=== PATIENT | male | born 1960 | race Caucasian/White ===

== ENCOUNTER 2024-07-08 13:56 | Observation (INO) | payer OTHER ==
[2024-07-08] MEDS: SODIUM CHLORIDE 0.9% 1,000 ML IV STA (14:32)
[2024-07-08 14:34] LABS: Basophils # (A) 0.06 10*3/uL (0.00-0.10); Basophils % (A) 0.7 %; HGB 16.5 g/dL (13.0-17.0); Lymphocytes # (A) 2.13 10*3/uL (0.90-5.00); Lymphocytes % (A) 24.5 %; MCHC 35.1 g/dL (32.0-37.0); MCV 88.3 fL (80.0-97.0); Mean Platelet Volume 10.1 fL (9.5-12.2); Monocytes # (A) 0.74 10*3/uL (0.20-1.00); Monocytes % (A) 8.5 %; Neutrophils # (A) 5.75 10*3/uL (1.80-7.70); Neutrophils % (A) 66.1 %; Platelet Count 260 10*3/uL (140-440); RBC 5.32 10*6/uL (4.40-5.60); RDW 12.3 % (11.5-14.5)
[2024-07-08] MEDS: MAGNESIUM SULFATE-D5W PMX 1 GM in DEXTROSE/WATER 1 100ML.BAG IVPB STA (14:34)
--- NOTE | 2024-07-08 14:39 | ED ---
General Adult HPI - General Chief complaint: Arrhythmia/Palpitations Stated complaint: Afib Time Seen by Provider: 07/08/24 14:12 Source: patient, RN notes reviewed, old records reviewed Mode of arrival: ambulatory Limitations: no limitations - History of Present Illness Initial comments: 64-year-old male history of CAD, remote history of atrial fibrillation presenting from preop for evaluation of atrial flutter with RVR. Patient was awaiting colonoscopy. He did do a bowel prep and has not eaten in the past 24 hours. Patient denies chest pain, denies palpitations. Denies shortness of breath. No abdominal pain. No fever. - Related Data Home Medications Medication Instructions Recorded Confirmed Aspirin [Adult Low Dose Aspirin EC] 81 mg PO WEEKLY 07/06/24 07/08/24 Atorvastatin Calcium [Lipitor] 40 mg PO HS 07/06/24 07/08/24 Metoprolol Succinate (ER) [Toprol 100 mg PO DAILY 07/06/24 07/08/24 Xl] Multivitamin [Multivitamins Adult 1 tab PO DAILY 07/06/24 07/08/24 Gummies] hydroCHLOROthiazide 25 mg PO DAILY 07/06/24 07/08/24 lisinopriL 2.5 mg PO DAILY 07/06/24 07/08/24 Allergies Allergy/AdvReac Type Severity Reaction Status Date / Time No Known Allergies Allergy Verified 07/08/24 14:03 Review of Systems ROS Statement: Those systems with pertinent positive or pertinent negative responses have been documented in the HPI. ROS Other: All systems not noted in ROS Statement are negative. Past Medical History Past Medical History: Coronary Artery Disease (CAD), Hyperlipidemia, Hypertension, Myocardial Infarction ([place]) Additional Past Medical History / Comment(s): hx colon polyps Last Myocardial Infarction Date:: 06/23/2014 History of Any Multi-Drug Resistant Organisms: None Reported Past Surgical History: Heart Catheterization With Stent Additional Past Surgical History / Comment(s): Vasectomy, foreign body removal from foot, colonscopy Past Anesthesia/Blood Transfusion Reactions: No Reported Reaction Date of Last Stent Placement:: 06/23/2014 Past Psychological History: No Psychological Hx Reported Smoking Status: Current every day smoker Past Alcohol Use History: None Reported Past Drug Use History: None Reported - Past Family History Mother Family Medical History: Cancer, Coronary Artery Disease (CAD) Father Family Medical History: Cancer General Exam Limitations: no limitations General appearance: alert, in no apparent distress Head exam: Present: atraumatic, normocephalic Eye exam: Present: normal appearance, PERRL ENT exam: Present: mucous membranes dry Neck exam: Present: normal inspection. Absent: tenderness, meningismus Respiratory exam: Present: normal lung sounds bilaterally. Absent: respiratory distress, wheezes Cardiovascular Exam: Present: normal rhythm, tachycardia GI/Abdominal exam: Present: soft. Absent: distended, tenderness, guarding Extremities exam: Present: normal inspection, normal capillary refill. Absent: pedal edema, calf tenderness Neurological exam: Present: alert, oriented X3, CN II-XII intact. Absent: motor sensory deficit Psychiatric exam: Present: normal affect, normal mood Skin exam: Present: warm, dry, intact Course Vital Signs 07/08/24 07/08/24 07/08/24 13:58 14:03 14:30 Temperature 97.3 F L Pulse Rate 142 H 144 H Pulse Rate [ 144 H [employer] ] Respiratory 18 20 20 Rate Blood Pressure 130/75 130/68 O2 Sat by Pulse 96 98 Oximetry 07/08/24 14:53 Temperature Pulse Rate 93 Pulse Rate [ [employer] ] Respiratory 18 Rate Blood Pressure 131/71 O2 Sat by Pulse 97 Oximetry Medical Decision Making - Medical Decision Making Was pt. sent in by a medical professional or institution ([facility], [employer], urgent care, hospital, or [facility]...) When possible be specific @ -No Did you speak to anyone other than the patient for history (EMS, parent, family, police, friend...)? What history was obtained from this source @ -No Did you review nursing and triage notes (agree or disagree)? Why? @ -I reviewed and agree with nursing and triage notes Were old charts reviewed (outside hosp., previous admission, EMS record, old EKG, old radiological studies, urgent care reports/EKG's, [facility] records)? Report findings @ -No old charts were reviewed Differential Palpitations Ventricular arrhythmias, atrial arrhythmias, myocardial infarction, anemia, thyrotoxicosis, electrolyte imbalance, hypokalemia, pulmonary embolism, pulmonary disease, drugs, alcohol, anxiety, stress.... This is not meant to be an all-inclusive list. EKG interpreted by me (3pts min.). @Atrial flutter with 2-1 conduction rate of 140 QRS duration 161, QTc 380 X-rays interpreted by me (1pt min.). @ -None done CT interpreted by me (1pt min.). @ -None done U/S interpreted by me (1pt. min.). @ -None done What testing was considered but not performed or refused? (CT, X-rays, U/S, labs)? Why? @ -None What meds were considered but not given or refused? Why? @ -None Did you discuss the management of the patient with other professionals (professionals i.e. , PA, ASPNET DEVELOPER, lab, RT, psych nurse, sexual assault social worker, tie binder, teacher, environmental technical officer, case resolution specialist)? Give summary @ -No Was smoking cessation discussed for >3mins.? @ -No Was critical care preformed (if so, how long)? @ -Yes, 35 minutes Were there social determinants of health that impacted care today? How? (Homelessness, low income, unemployed, alcoholism, drug addiction, transportation, low edu. Level, literacy, decrease access to med. care, group home, rehab)? @ -No Was there de-escalation of care discussed even if they declined (Discuss DNR or withdrawal of care, Hospice)? DNR status @ -No What co-morbidities impacted this encounter? (DM, HTN, Smoking, COPD, CAD, Cancer, CVA, ARF, Chemo, Hep., AIDS, mental health diagnosis, sleep apnea, morbid obesity)? @ -Hypertension, remote history of atrial fibrillation Was patient admitted / discharged? Hospital course, mention meds given and route, prescriptions, significant lab abnormalities, going to OR and other pertinent info. @ 64-year-old male presenting from preop with atrial flutter with RVR. Patient has heart rate 140, no chest pain or dyspnea. His [id number] is 3 patient is the refore started on heparin. He is given fluid bolus and magnesium and does have a downtrending heart rate. He had taken his metoprolol prior in the day. No lab abnormalities including CBC, CMP, troponin. Patient will be observed with consultation to cardiology. Undiagnosed new problem with uncertain prognosis? @ -No Drug Therapy requiring intensive monitoring for toxicity (Heparin, Nitro, Insu jaimie, Cardizem)? @ -No Were any procedures done? @ -No Diagnosis/symptom? @ -[Atrial flutter with RVR Acute, or Chronic, or Acute on Chronic? @ -Acute Uncomplicated (without systemic symptoms) or Complicated (systemic symptoms)? @ -Complicated Side effects of treatment? @ -[No Exacerbation, Progression, or Severe Exacerbation? @ -No Poses a threat to life or bodily function? How? (Chest pain, [place], [place], pneumonia, PE, COPD, DKA, ARF, appy, cholecystitis, CVA, Diverticulitis, Homicidal, Suici ori, threat to staff... and all critical care pts) @ -Yes, arrhythmia - Lab Data Result diagrams: 07/08/24 14:30 07/08/24 14:30 Lab Results 07/08/24 07/08/24 07/08/24 Range/Units 14:30 14:30 14:30 WBC 8.70 (4.50-10.00) 10*3/uL RBC 5.32 (4.40-5.60) 10*6/uL Hgb 16.5 (13.0-17.0) g/dL Hct 47.0 (39.6-50.0) % MCV 88.3 (80.0-97.0) fL MCH 31.0 (27.0-32.0) pg MCHC 35.1 (32.0-37.0) g/dL Plt Count 260 (140-440) 10*3/uL MPV 10.1 (9.5-12.2) fL Immature Gran % (Auto) 0.2 % Neutrophils % 66.1 % Lymphocytes % 24.5 % Monocytes % 8.5 % Eosinophils % 0.0 % Basophils % 0.7 % Immature Gran # 0.02 (0.00-0.04) 10*3/uL Neutrophils # 5.75 (1.80-7.70) 10*3/uL Lymphocytes # 2.13 (0.90-5.00) 10*3/uL Monocytes # 0.74 (0.20-1.00) 10*3/uL Eosinophils # 0.00 L (0.04-0.35) 10*3/uL Basophils # 0.06 (0.00-0.10) 10*3/uL PT 11.1 (10.0-12.5) sec INR 1.0 (<1.2) APTT 22.3 (22.0-30.0) sec Sodium 140 (137-145) mmol/L Potassium 4.5 (3.5-5.1) mmol/L Chloride 102 (98-107) mmol/L Carbon Dioxide 30 (22-30) mmol/L Anion Gap 8 mmol/L BUN 21 H (9-20) mg/dL Creatinine 1.11 (0.66-1.25) mg/dL Est GFR (CKD-EPI)AfAm 80 (>60 ml/min/1.73 sqM) Est GFR (CKD-EPI)NonAf 69 (>60 ml/min/1.73 sqM) Glucose 121 H (74-99) mg/dL Calcium 9.8 (8.4-10.2) mg/dL Magnesium 2.0 (1.6-2.3) mg/dL Total Bilirubin 1.0 (0.2-1.3) mg/dL AST 30 (17-59) U/L ALT 35 (4-49) U/L Alkaline Phosphatase 71 (38-126) U/L Troponin I (0.000-0.034) ng/mL Total Protein 7.0 (6.3-8.2) g/dL Albumin 4.4 (3.5-5.0) g/dL 04/25/25 Range/Units 14:30 WBC (4.50-10.00) 10*3/uL RBC (4.40-5.60) 10*6/uL Hgb (13.0-17.0) g/dL Hct (39.6-50.0) % MCV (80.0-97.0) fL MCH (27.0-32.0) pg MCHC (32.0-37.0) g/dL Plt Count (140-440) 10*3/uL MPV (9.5-12.2) fL Immature Gran % (Auto) % Neutrophils % % Lymphocytes % % Monocytes % % Eosinophils % % Basophils % % Immature Gran # (0.00-0.04) 10*3/uL Neutrophils # (1.80-7.70) 10*3/uL Lymphocytes # (0.90-5.00) 10*3/uL Monocytes # (0.20-1.00) 10*3/uL Eosinophils # (0.04-0.35) 10*3/uL Basophils # (0.00-0.10) 10*3/uL PT (10.0-12.5) sec INR (<1.2) APTT (22.0-30.0) sec Sodium (137-145) mmol/L Potassium (3.5-5.1) mmol/L Chloride (98-107) mmol/L Carbon Dioxide (22-30) mmol/L Anion Gap mmol/L BUN (9-20) mg/dL Creatinine (0.66-1.25) mg/dL Est GFR (CKD-EPI)AfAm (>60 ml/min/1.73 sqM) Est GFR (CKD-EPI)NonAf (>60 ml/min/1.73 sqM) Glucose (74-99) mg/dL Calcium (8.4-10.2) mg/dL Magnesium (1.6-2.3) mg/dL Total Bilirubin (0.2-1.3) mg/dL AST (17-59) U/L ALT (4-49) U/L Alkaline Phosphatase (38-126) U/L Troponin I <0.012 (0.000-0.034) ng/mL Total Protein (6.3-8.2) g/dL Albumin (3.5-5.0) g/dL Critical Care Time Critical Care Time: Yes Total Critical Care Time: 35 Disposition Clinical Impression: Atrial flutter with rapid ventricular response Disposition: ADMITTED IP TO THIS [facility] Condition: Stable Is patient prescribed a controlled substance at d/c from ED?: No Referrals: Bebe Gilmore MD [Primary Care Provider] - 1-2 days Time of Disposition: 15:19
[2024-07-08 14:46] LABS: ALT 35 U/L (4-49); AST 30 U/L (17-59); African American GFR (CKD) 80 (>60 ml/min/1.73 sqM); Albumin 4.4 g/dL (3.5-5.0); Alkaline Phosphatase 71 U/L (38-126); Anion Gap 8 mmol/L; Blood Urea Nitrogen 21 mg/dL (9-20); Calcium 9.8 mg/dL (8.4-10.2); Carbon Dioxide 30 mmol/L (22-30); Chloride 102 mmol/L (98-107); Glucose 121 mg/dL (74-99); Non-African American GFR(CKD) 69 (>60 ml/min/1.73 sqM); Potassium 4.5 mmol/L (3.5-5.1); Sodium 140 mmol/L (137-145)
[2024-07-08 14:50] LABS: Partial Thromboplastin Time 22.3 sec (22.0-30.0); Prothrombin Time 11.1 sec (10.0-12.5)
[2024-07-08] MEDS ORDERED: NALOXONE 0.4 MG/ML 1 ML VIAL IV PRN (15:14)
[2024-07-08] MEDS ORDERED: ACETAMINOPHEN TAB 325 MG TAB PO PRN (15:14)
[2024-07-08] MEDS: HEPARIN SOD,PORK IN 0.45% NACL 25,000 UNIT in 0.45% NACL 1 250ML.BAG IV SCH (15:34)
[2024-07-08] MEDS: HEPARIN SODIUM 1,000 UN/ML (10ML VL) IV ONE (15:38)
[2024-07-08] MEDS: SODIUM CHLORIDE 0.9% 1,000 ML IV SCH (15:39)
[2024-07-08] MEDS: HEPARIN SODIUM 1,000 UN/ML (10ML VL) IV PRN (22:28)
[2024-07-09 05:05] LABS: Partial Thromboplastin Time 73.5 sec (22.0-30.0); Prothrombin Time 11.3 sec (10.0-12.5)
[2024-07-09 07:06] VITALS: PULSE 53
[2024-07-09] MEDS: METOPROLOL SUCCINATE (ER) 100 MG TAB.ER.24H PO SCH (09:02)
--- NOTE | 2024-07-09 09:45 | P.HPIM ---
History of Present Illness H&P Date: 07/09/24 History of present illness; patient 64-year-old gentleman past medical history significant for paroxysmal atrial fibrillation, hyperlipidemia, hypertension who presented to the ER for palpitation. Patient was initially supposed to be getting colonoscopy and was in the preop area waiting on 8. Patient stated he had been doing bowel prep for the last 24 hours and has not been eating much. In the preop area, patient found to be in atrial flutter, patient at the time was not symptomatic. Patient any chest pain. There was no complaint of shortness of breath. Patient denies any palpitation. There was no complaint orthopnea or PND. Patient was initially sent to the ER Initial lab work done in the ER showed WBC 8.70, hemoglobin 16.5, platelet count 260, sodium 140, potassium 4.5, BUN 21, creatinine 1.11 calcium 9.0 magnesium 2, bilirubin 1, AST 30, ALT 35, troponin 0.012 EKG done in the ER showed heart rate of 140, irregular in rate, sawtooth wave pattern, no ST segment elevation or depression seen, no T-wave inversions seen. Chest x-ray done in the ER CT head done showed no acute intracranial process CTA head and neck done showed no significant stenosis, aneurysm or thrombus in the intracranial circulation Patient admitted to internal medicine service REVIEW OF SYSTEMS: CONSTITUTIONAL: No fever, no malaise, no fatigue. HEENT: No recent visual problems or hearing problems. Denied any sore throat. CARDIOVASCULAR: No chest pain, orthopnea, PND, no palpitations, no syncope. PULMONARY: No shortness of breath, no cough, no hemoptysis. GASTROINTESTINAL: No diarrhea, no nausea, no vomiting, no abdominal pain. NEUROLOGICAL: No headaches, no weakness, no numbness. HEMATOLOGICAL: Denies any bleeding or petechiae. GENITOURINARY: Denies any burning micturition, frequency, or urgency. MUSCULOSKELETAL/RHEUMATOLOGICAL: Denies any joint pain, swelling, or any muscle pain. ENDOCRINE: Denies any polyuria or polydipsia. The rest of the 14-point review of systems is negative. PHYSICAL EXAMINATION: GENERAL: The patient is alert and oriented x3, not in any acute distress. Well developed, well nourished. HEENT: Pupils are round and equally reacting to light. EOMI. No scleral icterus. No conjunctival pallor. Normocephalic, atraumatic. No pharyngeal erythema. No th yromegaly. CARDIOVASCULAR: S1 and S2 present. No murmurs, rubs, or gallops. PULMONARY: Chest is clear to auscultation, no wheezing or crackles. ABDOMEN: Soft, nontender, nondistended, normoactive bowel sounds. No palpable organomegaly. MUSCULOSKELETAL: No joint swelling or deformity. EXTREMITIES: No cyanosis, clubbing, or pedal edema. NEUROLOGICAL: Gross neurological examination did not reveal any focal deficits. SKIN: No rashes. Assessment and plan Atrial flutter with RVR Hypertension Hyperlipidemia History of paroxysmal atrial fibrillation Monitor vital signs Monitor CBC Monitor CMP Continue telemetry monitoring Trend troponin Ordered 2D echo Continue pharmacy with heparin Patient is currently rate controlled, start Toprol at home dose Resume home meds Consult cardiology Labs and medication were reviewed.. Continue same treatment. Continue with symptomatic treatment. Resume home medication. Monitor labs and vitals. DVT and GI prophylaxis. Further recommendations as per clinical course of the patient Dictation was produced using [employer] dictation software. please excuse any grammatical, word or spelling errors. Past Medical History Past Medical History: Atrial Fibrillation, Coronary Artery Disease (CAD), Hyperlipidemia, Hypertension, Myocardial Infarction ([place]) Additional Past Medical History / Comment(s): hx colon polyps Last Myocardial Infarction Date:: 06/23/2014 History of Any Multi-Drug Resistant Organisms: None Reported Past Surgical History: Heart Catheterization With Stent Additional Past Surgical History / Comment(s): Vasectomy, foreign body removal from foot, colonscopy Past Anesthesia/Blood Transfusion Reactions: No Reported Reaction Date of Last Stent Placement:: 06/23/2014 Past Psychological History: No Psychological Hx Reported Smoking Status: Current every day smoker Past Alcohol Use History: Occasional Additional Past Alcohol Use History / Comment(s): Smokes 1-2 ppd Past Drug Use History: None Reported - Past Family History Mother Family Medical History: Cancer, Coronary Artery Disease (CAD) Father Family Medical History: Cancer Medications and Allergies Home Medications Medication Instructions Recorded Confirmed Type Aspirin [Adult Low Dose Aspirin EC] 81 mg PO MOWEFR 07/06/24 07/08/24 History Atorvastatin Calcium [Lipitor] 40 mg PO HS 07/06/24 07/08/24 History Metoprolol Succinate (ER) [Toprol 100 mg PO DAILY 07/06/24 07/08/24 History Xl] hydroCHLOROthiazide 25 mg PO DAILY 07/06/24 07/08/24 History lisinopriL 2.5 mg PO DAILY 07/06/24 07/08/24 History Mv-Min/Folic/K1/Lycopen/Lutein 1 tab PO DAILY 07/08/24 07/08/24 History [Centrum Silver Men Tablet] Allergies Allergy/AdvReac Type Severity Reaction Status Date / Time No Known Allergies Allergy Verified 07/08/24 16:06 Physical Exam Vitals: Vital Signs Temp Pulse Pulse Pulse Resp BP BP 07/09/24 02:00 97.9 F 64 17 121/68 07/08/24 20:00 97.5 F L 60 17 120/68 07/08/24 18:00 97.5 F L 57 L 16 134/52 07/08/24 17:35 68 16 130/60 07/08/24 16:00 56 L 20 130/59 07/08/24 15:03 52 L 20 127/67 07/08/24 14:53 93 18 131/71 07/08/24 14:30 144 H 20 07/08/24 14:03 144 H 20 130/68 07/08/24 13:58 97.3 F L 142 H 18 130/75 Pulse Ox 07/09/24 02:00 99 07/08/24 20:00 96 07/08/24 18:00 98 07/08/24 17:35 98 07/08/24 16:00 98 07/08/24 15:03 99 07/08/24 14:53 97 07/08/24 14:30 07/08/24 14:03 98 07/08/24 13:58 96 Intake and Output 07/08/24 07/08/24 07/09/24 14:59 22:59 06:59 Intake Total 309 84.463 Balance 309 84.463 Intake: Intake, IV Titration 69 84.463 Amount Heparin Sod,Pork in 0.45% 69 84.463 NaCl 25,000 unit In 0.45 % NaCl 1 250ml.bag @ 11. 789 UNITS/KG/HR 10 mls/hr IV .Q24H [facility] Rx#: [id number] Oral 240 Other: Voiding Method Toilet # Voids 1 2 Weight 84.822 kg 84.822 kg Results CBC & Chem 7: 07/08/24 14:30 07/08/24 14:30 Labs: Abnormal Lab Results - Last 24 Hours (Table) 07/08/24 07/08/24 07/09/24 Range/Units 14:30 14:30 04:24 Eosinophils # 0.00 L (0.04-0.35) 10*3/uL APTT 73.5 H (22.0-30.0) sec BUN 21 H (9-20) mg/dL Glucose 121 H (74-99) mg/dL Thrombosis Risk Factor Assmnt - Choose All That Apply Any of the Below Risk Factors Present?: Yes Each Factor Represents 1 point: Obesity (BMI >25) Other Risk Factors: Yes Each Risk Factor Represents 2 Points: Age 61-74 years Thrombosis Risk Factor Assessment Total Risk Factor Score: 3 Thrombosis Risk Factor Assessment Level: Moderate Risk
[2024-07-09 09:49] LABS: Basophils # (A) 0.06 X 10*3/uL (0.00-0.10); Basophils % (A) 0.6 %; Eosinophils % (A) 3.1 %; HCT 42.2 % (39.6-50.0); Lymphocytes % (A) 34.7 %; MCH 30.8 pg (27.0-32.0); MCHC 33.2 g/dL (32.0-37.0); MCV 92.7 FL (80.0-97.0); Mean Platelet Volume 10.8 FL (9.5-12.2); Monocytes # (A) 0.89 X 10*3/uL (0.20-1.00); Monocytes % (A) 9.1 %; NRBC Per 100 WBC 0 X 10*3/uL (0.00-0.01); Neutrophils % (A) 52.1 %; Platelet Count 235 X 10*3/uL (140-440); RBC 4.55 X 10*6/uL (4.40-5.60); RDW 12.6 % (11.5-14.5); WBC 9.79 X 10*3/uL (4.50-10.00)
--- NOTE | 2024-07-09 10:03 | P.CRDCN ---
History of Present Illness Consult date: 07/09/24 History of present illness: HPI: The patient is a 64-year-old male with a history of coronary artery disease (CAD) with prior LA in 2015 requiring PCI. He also has a remote history of atrial fibrillation for which she is managed on aspirin and beta-joe. He is following with Dr. Eliceo Murguia. He was seen in the preoperative area for GI endoscopy. His initial EKG in the preoperative area showed atrial flutter with rapid ventricular response (RVR) with a heart rate in the 140s. He was then sent to the ER. On today's evaluation, he is noted to be in normal sinus rhythm. Patient reports that when he was in the atrial flutter with RVR he did not have any cardiovascular symptoms of palpitation lightheadedness or dizziness. At this time he is asymptomatic from cardiovascular standpoint. Pertinent Vitals: - Blood pressure: 134/58 mmHg - Heart rate: 60 beats per minute Pertinent cardiac Labs: - 06/2024: Hemoglobin 16.5, Platelet 260, Troponin negative, TSH 1.3, BUN 21, Creatinine 1.1 Cardiac home meds: Aspirin, Metoprolol XL 100 mg daily, Lipitor 40 mg, Lisinopril 2.5 mg, Hydrochlorothiazide (HCTZ) 25 mg Pertinent cardiac testing: - EK06/2024: Atrial flutter with RVR REVIEW OF SYSTEMS: 14 point review of system is negative except what is mentioned above in HPI. PHYSICAL EXAMINATION: Neck: Brisk carotid upstroke, no jugular venous distention. Lungs: Clear to auscultation. Heart: Regular rate and rhythm, S1-S2, no murmur or rub. Abdomen: Soft nontender, positive bowel sounds. Extremities: No edema, intact distal pulses. Neuro: Alert, oriented, no focal deficits. Detailed neuro exam was not performed. ASSESSMENT: # Atypical atrial flutter, spontaneously converted to sinus rhythm # Prior history of CAD status post PCI to RCA in 2014 # Prior history of paroxysmal atrial fibrillation # Essential hypertension # Dyslipidemia # GERD PLAN: # Obtain echocardiogram # Obtain NT-proBNP, lipid panel, HbA1c level, magnesium level # Continue home medications including Metoprolol XL 100 mg daily and Lisinopril but changed to 10 mg daily. Discontinue HCTZ. # Recommend anticoagulation due to [id number] score of 2 instead of baby aspirin, start Eliquis 5 mg twice daily # Recommend outpatient stress testing and atrial flutter ablation Start Protonix 40 mg for GERD symptoms If echocardiogram is essentially with WNL, patient is cleared to be discharged from cardiovascular standpoint. Recommend follow-up with primary conservation biology professor Past Medical History Past Medical History: Atrial Fibrillation, Coronary Artery Disease (CAD), Hyperlipidemia, Hypertension, Myocardial Infarction (LA) Additional Past Medical History / Comment(s): hx colon polyps Last Myocardial Infarction Date:: 06/23/2014 History of Any Multi-Drug Resistant Organisms: None Reported Past Surgical History: Heart Catheterization With Stent Additional Past Surgical History / Comment(s): Vasectomy, foreign body removal from foot, colonscopy Past Anesthesia/Blood Transfusion Reactions: No Reported Reaction Date of Last Stent Placement:: 06/23/2014 Past Psychological History: No Psychological Hx Reported Smoking Status: Current every day smoker Past Alcohol Use History: Occasional Additional Past Alcohol Use History / Comment(s): Smokes 1-2 ppd Past Drug Use History: None Reported - Past Family History Mother Family Medical History: Cancer, Coronary Artery Disease (CAD) Father Family Medical History: Cancer Medications and Allergies Home Medications Medication Instructions Recorded Confirmed Type Aspirin [Adult Low Dose Aspirin EC] 81 mg PO MOWEFR 07/06/24 07/08/24 History Atorvastatin Calcium [Lipitor] 40 mg PO HS 07/06/24 07/08/24 History Metoprolol Succinate (ER) [Toprol 100 mg PO DAILY 07/06/24 07/08/24 History Xl] hydroCHLOROthiazide 25 mg PO DAILY 07/06/24 07/08/24 History lisinopriL 2.5 mg PO DAILY 07/06/24 07/08/24 History Mv-Min/Folic/K1/Lycopen/Lutein 1 tab PO DAILY 07/08/24 07/08/24 History [Centrum Silver Men Tablet] Allergies Allergy/AdvReac Type Severity Reaction Status Date / Time No Known Allergies Allergy Verified 07/08/24 16:06 Physical Exam Vitals: Vital Signs Temp Pulse Pulse Pulse Resp BP BP 07/09/24 07:00 97.4 F L 53 L 15 134/70 07/09/24 02:00 97.9 F 64 17 121/68 07/08/24 20:00 97.5 F L 60 17 120/68 07/08/24 18:00 97.5 F L 57 L 16 134/52 07/08/24 17:35 68 16 130/60 07/08/24 16:00 56 L 20 130/59 07/08/24 15:03 52 L 20 127/67 07/08/24 14:53 93 18 131/71 07/08/24 14:30 144 H 20 07/08/24 14:03 144 H 20 130/68 07/08/24 13:58 97.3 F L 142 H 18 130/75 Pulse Ox 07/09/24 07:00 98 07/09/24 02:00 99 07/08/24 20:00 96 07/08/24 18:00 98 07/08/24 17:35 98 07/08/24 16:00 98 07/08/24 15:03 99 07/08/24 14:53 97 07/08/24 14:30 07/08/24 14:03 98 07/08/24 13:58 96 Intake and Output 07/08/24 07/09/24 07/09/24 22:59 06:59 14:59 Intake Total 309 84.463 Balance 309 84.463 Intake: Intake, IV Titration 69 84.463 Amount Heparin Sod,Pork in 0.45% 69 84.463 NaCl 25,000 unit In 0.45 % NaCl 1 250ml.bag @ 11. 789 UNITS/KG/HR 10 mls/hr IV .Q24H [facility] Rx#: [id number] Oral 240 Other: Voiding Method Toilet # Voids 1 2 Weight 84.822 kg Results 07/09/24 04:24 07/08/24 14:30 Cardiac Enzymes 07/08/24 07/08/24 Range/Units 14:30 14:30 AST 30 (17-59) U/L Troponin I <0.012 (0.000-0.034) ng/mL Coagulation 07/08/24 07/08/24 07/09/24 Range/Units 14:30 21:58 04: PT 11.1 11.3 (10.0-12.5) sec APTT 22.3 22.8 73.5 H (22.0-30.0) sec CBC 07/08/24 07/09/24 Range/Units 14:30 04:24 WBC 8.70 9.79 (4.50-10.00) 10*3/uL RBC 5.32 4.55 (4.40-5.60) 10*6/uL Hgb 16.5 14.0 (13.0-17.0) g/dL Hct 47.0 42.2 (39.6-50.0) % Plt Count 260 235 (140-440) 10*3/uL Comprehensive Metabolic Panel 07/08/24 Range/Units 14:30 Sodium 140 (137-145) mmol/L Potassium 4.5 (3.5-5.1) mmol/L Chloride 102 (98-107) mmol/L Carbon Dioxide 30 (22-30) mmol/L BUN 21 H (9-20) mg/dL Creatinine 1.11 (0.66-1.25) mg/dL Glucose 121 H (74-99) mg/dL Calcium 9.8 (8.4-10.2) mg/dL AST 30 (17-59) U/L ALT 35 (4-49) U/L Alkaline Phosphatase 71 (38-126) U/L Total Protein 7.0 (6.3-8.2) g/dL Albumin 4.4 (3.5-5.0) g/dL Current Medications Generic Name Dose Route Start Last Admin Trade Name Freq PRN Reason Stop Dose Admin Acetaminophen 650 mg 07/08/24 15:14 Acetaminophen Tab 325 Mg Tab PO Q6HR PRN Mild Pain or Fever > 100.5 Atorvastatin Calcium 40 mg 07/09/24 21:00 Atorvastatin 40 Mg Tab PO HS MEE Heparin Sodium (Porcine) 0 unit 07/08/24 15:03 07/08/24 22:28 Heparin Sodium 1,000 Un/Ml (10ml Vl) IV 4,000 unit PER PROTOCOL PRN Administration Low PTT Protocol Heparin Sodium/Sodium Chloride 250 mls @ 10 mls/hr 07/08/24 15:15 07/09/24 05:12 25,000 unit/ Sodium Chloride IV 12.789 units/kg/hr .Q24H MEE 10.848 mls/hr Titration Protocol 11.789 UNITS/KG/HR Sodium Chloride 1,000 mls @ 75 mls/hr 07/08/24 15:15 07/09/24 05:18 Saline 0.9% IV Not Given .[id number] MEE Lisinopril 10 mg 07/09/24 09:30 Lisinopril 10 Mg Tab PO DAILY [facility] Metoprolol Succinate 100 mg 07/09/24 09:00 07/09/24 09:02 Metoprolol Succinate (Er) 100 Mg Tab.Er.24h PO Not Given DAILY [facility] Naloxone HCl 0.2 mg 07/08/24 15:14 Naloxone 0.4 Mg/Ml 1 Ml Vial IV Q2M PRN Opioid Reversal Intake and Output 07/08/24 07/09/24 07/09/24 22:59 06:59 14:59 Intake Total 309 84.463 Balance 309 84.463 Intake: Intake, IV Titration 69 84.463 Amount Heparin Sod,Pork in 0.45% 69 84.463 NaCl 25,000 unit In 0.45 % NaCl 1 250ml.bag @ 11. 789 UNITS/KG/HR 10 mls/hr IV .Q24H [facility] Rx#: [id number] Oral 240 Other: Voiding Method Toilet # Voids 1 2 Weight 84.822 kg 07/09/24 04:24 07/08/24 14:30
[2024-07-09] MEDS ORDERED: PANTOPRAZOLE 40 MG TABLET PO STA (10:14)
[2024-07-09] MEDS: lisinopriL 10 MG TAB PO SCH (11:06)
[2024-07-09 12:36] LABS: NT-Pro-B-Type Natriuretic Pept 209 pg/mL
[2024-07-09 14:26] VITALS: BP 139/68; RESP 16; TEMP 97.7
[2024-07-09] MEDS ORDERED: ATORVASTATIN 40 MG TAB PO SCH (21:00)
[2024-07-09] MEDS ORDERED: APIXABAN 5 MG TAB PO SCH (21:00)
[2024-07-10 07:06] LABS: Chol/HDL Ratio 3.37 Ratio; LDL Cholesterol,Calculated 53.1 mg/dL (0.0-131.0)
[2024-07-10] MEDS ORDERED: PANTOPRAZOLE 40 MG TABLET PO SCH (07:30)
--- NOTE | 2024-07-10 11:39 | CA ---
Transthoracic Echo Report Name: Jared Alanis Age: 64 Gender: M : 1960 Exam Date: 07/09/2024 13:35 Exam Location: [facility] Ht (in): 67 Wt (lb): 187 Ordering Physician: Ricky Wheeler MD ([id number]) Attending/Referring Phys: Economic Specialist Lula De La Vega RDCS Procedure CPT: Indications: Atrial flutter, cardiomyopathy Cardiac Hx: Technical Quality: Good Contrast 1: Total Dose (mL): Contrast 2: Total Dose (mL): MEASUREMENTS (Male / Female) Normal Values 2D ECHO LV Diastolic Diameter PLAX 5.0 cm 4.2 - 5.9 / 3.9 - 5.3 cm LV Systolic Diameter PLAX 3.9 cm IVS Diastolic Thickness 1.4 cm 0.6 - 1.0 / 0.6 - 0.9 cm LVPW Diastolic Thickness 1.4 cm 0.6 - 1.0 / 0.6 - 0.9 cm LV Relative Wall Thickness 0.6 RV Internal Dim ED PLAX 3.1 cm LA Systolic Diameter LX 3.8 cm 3.0 - 4.0 / 2.7 - 3.8 cm LV Diastolic Volume MOD BP 70.2 cm??? 67 - 155 / 56 - 104 cm??? LV Systolic Volume MOD BP 28.1 cm??? 22 - 58 / 19 - 49 cm??? LV Ejection Fraction MOD BP 59.9 % >= 55 % LV Cardiac Index MOD BP 1162.0 cm???/min???m??? LV Diastolic Volume MOD 4C 68.9 cm??? LV Systolic Volume MOD 4C 23.9 cm??? LV Ejection Fraction MOD 4C 65.3 % LV Cardiac Index MOD 4C 1244.4 cm???/min???m??? LV Diastolic Length 4C 7.6 cm LV Systolic Length 4C 5.8 cm LV Diastolic Volume MOD 2C 71.2 cm??? LV Systolic Volume MOD 2C 29.9 cm??? LV Ejection Fraction MOD 2C 57.9 % LV Cardiac Index MOD 2C 1140.5 cm???/min???m??? LV Diastolic Length 2C 7.5 cm LV Systolic Length 2C 6.5 cm LA Volume 70.6 cm??? 18 - 58 / 22 - 52 cm??? LA Volume Index 34.9 cm???/m??? 16 - 28 cm???/m??? M-MODE Aortic Root Diameter MM 2.9 cm AV Cusp Separation MM 2.2 cm DOPPLER AV Peak Velocity 121.5 cm/s AV Peak Gradient 5.9 mmHg MV Area PHT 4.3 cm??? Mitral E Point Velocity 114.7 cm/s Mitral A Point Velocity 67.3 cm/s Mitral E to A Ratio 1.7 MV Deceleration Time 174.8 ms TR Peak Velocity 241.5 cm/s TR Peak Gradient 23.3 mmHg Right Ventricular Systolic Press 28.3 mmHg FINDINGS Left Ventricle Left ventricular ejection fraction is estimated at 60-65 %. Left ventricular cavity size at the upper limits of normal. Moderate concentric left ventricular hypertrophy. No obvious regional wall motion abnormalities. Right Ventricle Normal right ventricular size. Right ventricular systolic pressure within normal limits. Right Atrium Normal right atrial size. No right atrial thrombus or mass seen. Left Atrium Moderately increased left atrial volume. Mildly increased left atrial area. No left atrial thrombus or mass present. Mitral Valve Mitral valve thickened. Mitral annular calcification. Trace mitral regurgitation. Aortic Valve Trileaflet aortic valve. Aortic valve sclerosis. No aortic stenosis. No aortic regurgitation. Tricuspid Valve Structurally normal tricuspid valve. Mild tricuspid regurgitation. Pulmonic Valve Pulmonic valve not well visualized. Pericardium No pericardial effusion. Aorta Normal size aortic root and proximal ascending aorta. CONCLUSIONS LVEF 60% Moderate concentric LVH No obvious regional wall motion abnormality Normal RV size and systolic function Moderate left atrial dilatation No significant valvular dysfunction Previewed by: Dr Ricky Wheeler (Electronically Signed) Final Date: 10 July 2024 11:38
[2024-07-11] MEDS ORDERED: ASPIRIN 81 MG PO SCH (09:00)
== END 2024-07-09 14:58 | disposition home or self-care (01) ==
LOC: EC 13:56 → 6NMEDSUR 15:14
PROVIDERS: ADMIT Hospitalist; ATTEND Hospitalist
DX: I48.4 Atypical atrial flutter (principal); I25.10 Atherosclerotic heart disease of native coronary artery without angina pectoris; I10 Essential (primary) hypertension; I48.0 Paroxysmal atrial fibrillation; E78.5 Hyperlipidemia, unspecified; K21.9 Gastro-esophageal reflux disease without esophagitis; E66.9 Obesity, unspecified; Z68.29 Body mass index [BMI] 29.0-29.9, adult; F17.210 Nicotine dependence, cigarettes, uncomplicated; I25.2 Old myocardial infarction; Z79.82 Long term (current) use of aspirin; Z79.899 Other long term (current) drug therapy; Z95.5 Presence of coronary angioplasty implant and graft
CPT/HCPCS: 96376 ×2; 96366 ×3; 96361; 96365; 96367; 99291; 36415; 93005; 93306; 83880; 80061; 80053; 83735; 84443; 84484; 85025 ×2; 85610 ×2; 85730 ×2; 83036; G0378 ×2; J1644 ×2; J3475

== ENCOUNTER → 2024-07-08 | Day surgery (SDC) | payer OTHER ==
[2024-07-06 08:50] VITALS: BMI 28.2
[~2024-07-08] MED LIST: LACTATED RINGERS 1,000 ML IV SCH
[2024-07-08 13:58] VITALS: BP 140/69; PULSE 142; RESP 18; TEMP 97.4
--- NOTE | 2024-07-08 14:56 | P.PCN ---
Date of Procedure: 07/08/24 Procedure(s) Performed: BRIEF HISTORY: Patient is a 64-year-old, pleasant, white male scheduled for an upper endoscopy as a part evaluation of longstanding history of GERD.. PROCEDURE PERFORMED: Esophagogastroduodenoscopy with biopsy. PREOPERATIVE DIAGNOSIS: Longstanding history of GERD. IV sedation per anesthesia. PROCEDURE: After informed consent was obtained, the patient was brought into the endoscopy unit. IV sedation was administered by Anesthesia under continuous monitoring. Initially the Olympus GIF-140 video endoscope was inserted into the mouth. Esophagus intubated without any difficulty. It was gradually advanced into the stomach and duodenum and carefully examined. The bulb and the second part of the duodenum appeared normal. The scope at this time was withdrawn to the stomach, adequately insufflated with air, and upon careful examination, mucosa of the antrum, had mild gastritis and biopsies were done from this area. Multiple small gastric polyps noted in the gastric body which were biopsied. Body, cardia and the fundus appeared normal. The scope was then withdrawn into the esophagus. Small to moderate-sized hiatal hernia noted. The GE junction was located at 38 cm from the incisors. There was a short segment of Beckett's esophagus extending 3 to 4 mm proximal to the GE junction that was biopsied. The rest of the esophagus appeared normal. There were no erosions or ulcerations seen and the patient tolerated the procedure well. IMPRESSION: 1. Short segment Beckett's esophagus. 2. Small to moderate-sized hiatal hernia 2. Multiple small gastric polyps and mild gastritis. RECOMMENDATIONS: The findings of this examination were discussed with the patien t as well as his family.. He was advised to follow with the biopsy results. Continue with Protonix 40 mg daily half hour before dinnertime and Pepcid at bedtime and follow antireflux measures. If the biopsy confirms the presence of Beckett's esophagus he can have repeat upper endoscopy in 3 years.
== END ==
LOC: ORWHC2ENDO 12:50
PROVIDERS: ATTEND Internal Medicine Gastroenterology
DX: Z53.9 Procedure and treatment not carried out, unspecified reason (principal)